=== PATIENT | female | born 1990 | race Caucasian/White ===

== ENCOUNTER 2018-07-20 00:09 | Emergency (ER) | payer SELFPAY ==
[~2018-07-20] VITALS: Ht 170.2 cm; Wt 71.0 kg
[2018-07-20 00:18] VITALS: BP 115/65; PULSE 114; RESP 20; Ht 170.2 cm; Wt 71.0 kg
== END 2018-07-20 01:45 | disposition left against medical advice (07) ==
LOC: FTE 00:09
DX: Z53.21 Procedure and treatment not carried out due to patient leaving prior to being seen by health care provider (principal)